=== PATIENT | male | born 1930 | race Caucasian/White ===

== ENCOUNTER 2017-02-14 07:12 | Inpatient (IN) | payer OTHER ==
[~2017-02-14] VITALS: Ht 182.9 cm; Wt 86.6 kg
--- NOTE | ~2017-02-14 | EKG ---
[address] [place] [address] ELECTROCARDIOGRAM REPORT Name: KATE JOSEPH Room #: [facility] M.R.#: [id number] Admission: Attend Phys: Discharge: Date of : 32 Report #: [id number] THIS REPORT FOR: //name// [facility] ED Test Date: 2017-02-14 Test Time: 07:19:13 Pat Name: KATE JOSEPH Department: Room: Gender: M [employer]: MIHAI : 1930 Requested By: Ayala Coley Order Number: [id number] MD: Yao Sylvester Measurements Intervals [place] Rate: 102 P: SC: QRS: 78 QRSD: 109 T: 56 QT: 392 QTc: 511 Interpretive Statements Sinus rhythm with occasional premature ventricular complexes Poor R wave progression Nonspecific ST segment abnormality No previous ECG available for comparison Electronically Signed On 02-14-2017 8:06:26 CDT by Yao Sylvester [email or web address] <ELECTRONICALLY SIGNED> By: Yao Sylvester MD, [facility] 02/14/17 0806 [id number] 8 Yao Sylvester MD, FACC /EPI
--- NOTE | ~2017-02-14 | HC ---
[facility] [place] [address] CONSULTATION Name: KATE JOSEPH Room #: 430-P ADM IN M.R.#: [id number] Admission: 02/14/17 Attend Phys: Jose Fleming MD Discharge: Date of : 32 Report #: [id number] THIS REPORT FOR: //name// CC: Dante Fleming DATE OF SERVICE: 02/14/2017 REFERRING PHYSICIAN: Jose Fleming M.D. REASON FOR REFERRAL: Lung mass. HISTORY OF PRESENT ILLNESS: The patient is an 86-year-old white male who was brought to the Emergency Room with dyspnea. Subsequent evaluation including chest x-ray and chest CT shows lung mass. A pulmonary consultation was requested. The patient has smoked most of his life, smoking about a pack a day and still actively does so. He was diagnosed with dementia in last few years. Family said that it has been progressive. He was in his usual state of health until early this morning. The patient was awoken, being in respiratory distress. There was no recent fever, night sweats or chills, chest pain or productive cough. Preliminary workup including chest x-ray and chest CT shows lung mass in the left upper lobe without a pulmonary nodules and mild mediastinal adenopathy. No infiltrates or consolidation was noted. According to the family, the patient has not a recent weight loss. No recent febrile illness, chest pain, productive cough, or hemoptysis. He smokes about a pack a day as mentioned above. REVIEW OF SYSTEMS: As mentioned above. PAST MEDICAL HISTORY: Notable for cataract, status post left corneal replacement. Otherwise, no known significant medical problems. ALLERGIES: None. MEDICATIONS: He is not on any home medications. FAMILY HISTORY: Noncontributory. SOCIAL HISTORY: He is , lives with his . According to the 2 of 6 children who was present today, they did acknowledge that patient and his [facility] [address] [place] [address] CONSULTATION Name: KATE JOSEPH Room #: 430-P [facility]#: [id number] Admission: 02/14/17 Attend Phys: Jose Fleming MD Discharge: Date of : 32 Report #: [id number] has been getting weaker over time. They have to bring in meals several times a week. The patient and the also need assistance with some daily activities. REVIEW OF SYSTEMS: As mentioned above, otherwise 10-point system is unremarkable. PHYSICAL EXAMINATION: GENERAL: He is awake, alert, to place and time. VITAL SIGNS: Temperature is 98 degrees Fahrenheit, pulse is 100, respiratory rate is 23, blood pressure is 163/98 mmHg, saturation 94%. HEENT: Normocephalic, atraumatic. NECK: Supple, without any lymphadenopathy or thyromegaly. CHEST: Breath sounds are fair, clear without any rales or wheezes. CARDIOVASCULAR: Normal S1, S2. There are no murmurs or gallop. There is no JVD. There is no carotid bruit. Pulses are 2+/4+ bilaterally. ABDOMEN: Soft, nontender, no organomegaly or masses felt. GENITOURINARY: Deferred. RECTAL: Deferred. EXTREMITIES: No cyanosis, mild clubbing involving the digits. Otherwise, no edema. LABORATORY DATA: Chest x-ray as mentioned above. Chest CT shows 3 cm solid lung mass within the left upper lobe, small nodules in the left lower lobe, mild adenopathy involving the left hilum. There is hypoechoic density involving the left lobe of the liver. EKG shows poor R-wave progression, nonspecific ST-T wave abnormalities. Electrolytes are normal, creatinine is 1.1. WBC 7900, hemoglobin is 14.5, platelets are normal. IMPRESSION: 1. Multiple lung nodules, mild mediastinal adenopathy in this 86-year-old white male with dementia, lifelong history of tobacco use. 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 Granulomatous disease is felt to be less likely. 2. Acute paroxysmal dyspnea. Much improved now, may be related to chronic obstructive pulmonary disease, possible congestion. Would treat for presumed chronic obstructive pulmonary disease for now on broad-spectrum antibiotics. 3. Dementia. This will create challenges in caring this elderly patient for possible need for workup and even treatment. RECOMMENDATION AND DISCUSSION: I had a long discussion with the patient's 2 of 6 children, who are presents today. The rest are out of town. Discussed the above findings. Discussed that proceeding workup may be difficult in this patient with dementia. If this was cancerous, treatment may also be very challenging. [address] [address] CONSULTATION Name: KATE JOSEPH Room #: 430-P ADM IN M.R.#: [id number] Admission: 02/14/17 Attend Phys: Jose Fleming MD Discharge: Date of : 32 Report #: [id number] After discussion, the children voices their understanding. At this time, they desire DNR for the patient. They are also up onto palliative consultation. I concur with their decision. We will palliative medicine, but corticosteroids and bronchodilators for presumed COPD along with broad-spectrum antibiotics. We have also recommended the family to consider possible nursing facility as both the patient and his seemed to be getting weak over time and needing assistance with daily living. They will considered these options. Thank you for this consultation. By: [id number] Bk Sierra MD /nt
[2017-02-14 07:13] VITALS: BP 162/89
[2017-02-14 07:26] LABS: BASOPHILS 0.8 % (0.0-2.0); EOSINOPHILS 1.6 % (0.0-3.0); HEMATOCRIT 42.7 % (42.0-52.0); HEMOGLOBIN 14.5 gm/dL (14.0-18.0); MCH 30.4 pg (26.0-34.0); MCV 89.3 fL (80.0-100.0); PLATELET COUNT 185 thou/uL (150-400); POLYS 63.6 % (36.0-66.0); RBC 4.78 mil/uL (4.50-6.00); RDW 13.5 % (10.5-14.5); WBC 7.9 thou/uL (4.0-11.0)
[2017-02-14 07:27] LABS: MANUAL DIFF NO
[2017-02-14 07:34] LABS: CALCIUM 8.6 mg/dL (8.5-10.1); CREATININE 1.1 mg/dL (0.7-1.3); POTASSIUM 3.8 mmol/L (3.5-5.1)
[2017-02-14 07:51] LABS: URINE BILIRUBIN NEGATIVE (Negative); URINE BLOOD 3+ (Negative); URINE COLOR YELLOW; URINE GLUCOSE-RANDOM* NEGATIVE (Negative); URINE KETONES NEGATIVE (Negative); URINE LEUKOCYTES-REFLEX NEGATIVE (Negative); URINE PROTEIN (DIPSTICK) TRACE (Negative); URINE SPECIFIC GRAVITY >= 1.030 (1.003-1.035); URINE UROBILINOGEN 0.2 E.U./dl (0.2-1.0)
[2017-02-14 08:07] LABS: CASTS None Seen /LPF (None Seen); CRYSTALS None Seen /LPF (None Seen); SQUAMOUS 0-3 Few /LPF (0-3); URINE RBC >20 Many /HPF (0-2); URINE WBC-REFLEX 0-5 Rare /HPF (0-5)
[2017-02-14 16:34] VITALS: BP 127/79
[2017-02-14 21:03] VITALS: BP 134/79
[2017-02-15 03:13] VITALS: BP 141/80
[2017-02-15 06:22] LABS: ABSOLUTE NEUTROPHILS 5.7 thou/uL (1.4-8.2); BASOPHILS 0.8 % (0.0-2.0); EOSINOPHILS 0.9 % (0.0-3.0); HEMATOCRIT 39.8 % (42.0-52.0); HEMOGLOBIN 13.2 gm/dL (14.0-18.0); LYMPHOCYTES 20.8 % (24.0-44.0); MCH 29.3 pg (26.0-34.0); MCHC 33.1 g/dL (28.0-37.0); MCV 88.4 fL (80.0-100.0); MONOCYTES 5.3 % (1.0-8.0); PLATELET COUNT 173 thou/uL (150-400); POLYS 72.2 % (36.0-66.0); RDW 13.4 % (10.5-14.5); WBC 7.9 thou/uL (4.0-11.0)
[2017-02-15 06:23] LABS: MANUAL DIFF NO
[2017-02-15 06:35] LABS: CALCIUM 8.3 mg/dL (8.5-10.1); CREATININE 0.9 mg/dL (0.7-1.3); MAGNESIUM 1.7 mg/dL (1.8-2.4); POTASSIUM 3.8 mmol/L (3.5-5.1)
[2017-02-15 07:37] VITALS: BP 141/80
[2017-02-15 07:48] LABS: PROTIME 10.7 Seconds (9.3-11.4)
[2017-02-15 10:35] VITALS: BP 169/87
[2017-02-15 14:32] VITALS: BP 169/87
[2017-02-15] MEDS ORDERED: DOXYCYCLINE 10100 MG PO (15:09)
[2017-02-15] MEDS ORDERED: SPIRIVA INH (15:10)
[2017-02-15] MEDS ORDERED: ACCUNEB SO1.25 MG/1 INH (15:17)
[2017-02-15 15:39] VITALS: BP 169/87
[2017-02-15 15:46] VITALS: BP 169/87
[2017-02-15] MEDS ORDERED: PREDNISONE 10 M10 MG PO (16:03)
== END 2017-02-15 16:27 | disposition home health service (06) | DRG 181 ==
LOC: ER 07:12 → EROBS 09:16 → 4E 09:16
PROVIDERS: Emergency Medicine; Internal Medicine; Nurse Practitioner
DX: C34.90 Malignant neoplasm of unspecified part of unspecified bronchus or lung (principal); J44.1 Chronic obstructive pulmonary disease with (acute) exacerbation; E87.0 Hyperosmolality and hypernatremia; F17.210 Nicotine dependence, cigarettes, uncomplicated; R59.0 Localized enlarged lymph nodes; D64.9 Anemia, unspecified; E83.42 Hypomagnesemia; F03.90 Unspecified dementia, unspecified severity, without behavioral disturbance, psychotic disturbance, mood disturbance, and anxiety; Z66 Do not resuscitate; Z79.899 Other long term (current) drug therapy; Z98.42 Cataract extraction status, left eye; Z98.41 Cataract extraction status, right eye; Z94.7 Corneal transplant status; Z80.9 Family history of malignant neoplasm, unspecified
CPT/HCPCS: 10183

== ENCOUNTER → 2018-01-04 | Outpatient (CLI) | payer OTHER ==
[~2018-01-04] MED LIST: ACCUNEB SO1.25 MG/1 INH; DOXYCYCLINE 10100 MG PO; PREDNISONE 10 M10 MG PO; SPIRIVA INH
== END ==
LOC: RAD 13:35
DX: R91.8 Other nonspecific abnormal finding of lung field (principal)